=== PATIENT | female | born 1970 | race Caucasian/White ===

== ENCOUNTER 2021-04-02 12:33 | Emergency (ER) | payer BC ==
[~2021-04-02] VITALS: Ht 154.9 cm; Wt 59.0 kg
--- NOTE | 2021-04-02 12:33 | NUR ---
PT BIBA VIA GURNEY TO BED 06. ERMD AT BEDSIDE.
[2021-04-02] MEDS ORDERED: NACL 0.9% 1,000 ML IV ONE (12:40)
[2021-04-02] MEDS ORDERED: levETIRAcetam 1,000 MG in NACL 0.9% 100 ML IV ONE (12:40)
[2021-04-02 12:41] VITALS: BP 131/82
[2021-04-02] MEDS ORDERED: LORazepam 2 MG/ML VIAL IVP ONE (12:50)
[2021-04-02] MEDS ORDERED: levETIRAcetam 100 MG/ML VIAL IV ONE (13:09)
[2021-04-02 13:39] LABS: BASOPHILS % (AUTO) 0.8 % (0.0-2.0); EOSINOPHILS # (AUTO) 0.1 K/uL (0-0.4); EOSINOPHILS % (AUTO) 2.6 % (0.0-4.0); HEMATOCRIT 37.5 % (36-48); HEMOGLOBIN 12.7 g/dL (12.0-16.0); LYMPHOCYTES # (AUTO) 1.5 K/uL (2.5-16.5); LYMPHOCYTES % (AUTO) 31.3 % (20.5-51.1); MEAN CORPUSCULAR HEMOGLOBIN 28 pg (27-31); MEAN CORPUSCULAR HGB CONC 34 g/dL (33-37); MONOCYTES # (AUTO) 0.4 K/uL (0.8-1.0); MONOCYTES % (AUTO) 8.3 % (1.7-9.3); NEUTROPHILS # (AUTO) 2.8 K/uL (1.8-7.7); PLATELET COUNT (AUTO) 161 K/uL (140-450); RED BLOOD CELL COUNT(AUTO) 4.46 MIL/uL (4.20-5.40); RED CELL DISTRIBUTION WIDTH 13.8 % (11.6-13.7); WHITE BLOOD COUNT (AUTO) 4.9 K/uL (4.8-10.8)
[2021-04-02 13:55] LABS: CARBON DIOXIDE 30.3 mmol/L (21-32); CREATININE 0.7 mg/dL (0.6-1.3); POTASSIUM 4.3 mmol/L (3.5-5.1)
--- NOTE | 2021-04-02 14:53 | NUR ---
IV removed, catheter intact and site benign. Applied folded 4x4 gauze and tape to stop bleeding.
[2021-04-02 14:55] VITALS: BP 131/82
--- NOTE | 2021-04-02 14:55 | NUR ---
Patient discharged with v/s stable. Written and verbal after care instructions given and explained. Patient verbalized understanding. Ambulatory with steady gait. All questions addressed prior to discharge. Advised to follow up with PMD.
--- NOTE | 2021-04-10 10:28 | NUR ---
LATE ENTRY- NORMAL SALINE IV DISCONTINUED AT 1455.
== END 2021-04-02 14:55 | disposition home or self-care (01) ==
LOC: MED 12:33
DX: G40.89 Other seizures (principal); G40.909 Epilepsy, unspecified, not intractable, without status epilepticus
CPT/HCPCS: 70450; 71045; 80048; 83605; 84146; 85025; 93005; 96365; 96366; 96375; 99285; J1953; J2060; J7030; Q0092